=== PATIENT | male | born 1985 | race Caucasian/White ===

== ENCOUNTER 2022-05-12 10:01 | Day surgery (SDC) | payer BC ==
[~2022-05-12 10:01] MED LIST: Lactated Ringers 1,000 ML IV SCH; Lidocaine 1%/Sod Bicarbonate in NS 8.4% 1 ML Syringe IDERM PRN; Sodium Chloride 0.9% 10 ML Syringe FLUSH PRN; Sodium Chloride 0.9% 10 ML Syringe FLUSH SCH
[2022-05-12] MEDS ORDERED: Propofol 200 MG/20 ML SDV ONE (10:25)
[2022-05-12] MEDS ORDERED: Lidocaine 1% 4 ML ONE (10:26)
[2022-05-12] MEDS ORDERED: Midazolam 1 MG/ML 2 ML SDV ONE (10:29)
[2022-05-12] MEDS ORDERED: fentaNYL 250 MCG/5 ML SDV ONE (10:29)
[2022-05-12] MEDS ORDERED: Rocuronium 50 MG/5 ML Vial ONE ×2 (10:30→11:32)
[2022-05-12] MEDS ORDERED: ceFAZolin 2 GM Vial ONE (10:31)
[2022-05-12] MEDS ORDERED: Bupivacaine 0.5%/EPINEPHrine 1:200,000 50 ML MDV ONE (10:34)
[2022-05-12] MEDS ORDERED: Lactated Ringers 1,000 ML ONE ×2 (11:23→12:25)
[2022-05-12] MEDS ORDERED: HYDROmorphone 0.5 MG/0.5 ML Syringe ONE ×2 (11:30→11:45)
[2022-05-12] MEDS ORDERED: diphenhydrAMINE 50 MG/ML SDV IVPUSH PRN (11:39)
[2022-05-12] MEDS ORDERED: fentaNYL 100 MCG/2 ML SDV IVPUSH PRN (11:39)
[2022-05-12] MEDS ORDERED: Ondansetron 4 MG/2 ML SDV IVPUSH PRN (11:39)
[2022-05-12] MEDS ORDERED: HYDROmorphone 0.5 MG/0.5 ML Syringe IVPUSH PRN (11:39)
[2022-05-12] MEDS ORDERED: Ondansetron 4 MG/2 ML SDV ONE (11:57)
[2022-05-12] MEDS ORDERED: Ketorolac 30 MG/ML SDV ONE (11:57)
[2022-05-12] MEDS ORDERED: fentaNYL 100 MCG/2 ML SDV ONE ×2 (12:00→12:56)
[2022-05-12] MEDS ORDERED: Sugammadex Sodium 200 MG/2 ML VIAL ONE (12:13)
== END 2022-05-12 14:45 | disposition home or self-care (01) ==
LOC: JD.SDS 10:01
PROVIDERS: ATTEND Surgery
DX: K42.9 Umbilical hernia without obstruction or gangrene (principal); E66.9 Obesity, unspecified; Z98.890 Other specified postprocedural states; Z90.49 Acquired absence of other specified parts of digestive tract; Z87.891 Personal history of nicotine dependence; Z68.41 Body mass index [BMI] 40.0-44.9, adult
CPT/HCPCS: 49652; 71045; J0690; J1170; J1885; J2250; J2405; J2704; J3010; J3490; J7120; C1781